=== PATIENT | female | born 1955 | race Caucasian/White ===

== ENCOUNTER 2019-11-02 09:31 | Emergency (ER) | payer MEDICARE, BC ==
[~2019-11-02] VITALS: Ht 165.1 cm; Wt 100.0 kg
[2019-11-02 11:00] LABS: BASOPHILS % (AUTO) 0.2 % (0-1); EOSINOPHILS % (AUTO) 0 % (0-6); HEMATOCRIT 44.8 % (35.0-45.0); HEMOGLOBIN 15.1 g/dl (12.0-16.0); LYMPHOCYTES # (AUTO) 1.2 X10'3 (1.1-4.8); LYMPHOCYTES % (AUTO) 10.4 % (21-51); MEAN CORPUSCULAR HEMOGLOBIN 30.2 PG (27.0-31.0); MEAN CORPUSCULAR HGB CONC 33.6 g/dL (33.0-36.5); MEAN CORPUSCULAR VOLUME 89.9 FL (78-98); MEAN PLATELET VOLUME 8.8 FL (7.4-10.4); MONOCYTES # (AUTO) 0.5 X10'3 (0-0.9); MONOCYTES % (AUTO) 4.1 % (2-12); NEUTROPHILS # (AUTO) 9.6 X10'3 (1.8-7.7); NEUTROPHILS % (AUTO) 85.3 % (42-75); PLATELET COUNT 163 X10'3 (140-440); RED BLOOD COUNT 4.99 X10'6 (4.20-5.60); RED CELL DISTRIBUTION WIDTH 13.1 % (11.5-14.5); WHITE BLOOD COUNT 11.3 X10'3 (4.5-11.0)
[2019-11-02 11:13] LABS: ALANINE AMINOTRANSFERASE 57 U/L (12-78); ALBUMIN 3.5 G/DL (3.4-5.0); ALKALINE PHOSPHATASE 151 IU/L (46-116); ANION GAP 10 (8-16); ASPARTATE AMINO TRANSFERASE 40 U/L (10-37); BILIRUBIN,TOTAL 0.2 MG/DL (0.1-1.0); BLOOD UREA NITROGEN 12 MG/DL (7-18); BUN/CREATININE RATIO 17.4 (6.6-38.0); CALCIUM 8.8 MG/DL (8.5-10.1); CHLORIDE 103 MMOL/L (99-107); CREATININE 0.69 MG/DL (0.40-0.90); GLUCOSE 134 MG/DL (70-104); POTASSIUM 3.4 MMOL/L (3.5-5.1); SODIUM 139 MMOL/L (135-145); TOTAL CARBON DIOXIDE 25.9 MMOL/L (24-32); TOTAL PROTEIN 7.1 G/DL (6.4-8.2); eGFR 85 ML/MIN
[2019-11-02] MEDS ORDERED: acetaminophen 325mg tablet PO ONE (11:30)
[2019-11-02] MEDS ORDERED: ibuprofen tablet 400 MG TABLET PO ONE (11:30)
[2019-11-02] MEDS ORDERED: ibuprofen 200mg tablet PO ONE (11:35)
--- NOTE | 2019-11-02 11:39 | NUR ---
Lab called with an Influenza A+ result for pt. SU Boateng made aware.
[2019-11-02] MEDS ORDERED: TAM75C PO (11:46)
[2019-11-02 11:56] VITALS: BP 142/82
== END 2019-11-02 11:59 | disposition home or self-care (01) ==
LOC: ER 09:32
DX: J10.1 Influenza due to other identified influenza virus with other respiratory manifestations (principal); G89.29 Other chronic pain; E78.00 Pure hypercholesterolemia, unspecified
CPT/HCPCS: 36415; 71046; 80053; 85025; 87502; 87503; 93005; 99285

== ENCOUNTER 2024-07-24 09:16 | Inpatient (IN) | payer MEDICARE, BC ==
[2024-07-24] VITALS (17 sets, daily range): BP systolic 90–184; BP diastolic 40–89; PULSE 70–91; RESP 9–26; O2SAT 83–99
[~2024-07-24] VITALS: Ht 162.6 cm; Wt 121.6 kg
[~2024-07-24 09:16] MED LIST: tenecteplase 50mg kit IV ONE
[2024-07-24] MEDS ORDERED: iohexol 350MG/ML 100ml bottle IV ONE (09:35)
[2024-07-24 09:54] LABS: BASOPHILS % (AUTO) 0.4 % (0-1); EOSINOPHILS # (AUTO) 0.2 X10'3 (0-0.9); EOSINOPHILS % (AUTO) 2.2 % (0-6); HEMATOCRIT 44.6 % (35.0-45.0); LYMPHOCYTES % (AUTO) 42.3 % (21-51); MEAN CORPUSCULAR HEMOGLOBIN 30.4 PG (27.0-31.0); MEAN CORPUSCULAR HGB CONC 33.7 g/dL (33.0-36.5); MEAN CORPUSCULAR VOLUME 90.4 FL (78-98); MEAN PLATELET VOLUME 7.1 FL (7.4-10.4); MONOCYTES # (AUTO) 0.4 X10'3 (0-0.9); MONOCYTES % (AUTO) 5.1 % (2-12); NEUTROPHILS # (AUTO) 3.5 X10'3 (1.8-7.7); PLATELET COUNT 271 X10'3 (140-440); RED BLOOD COUNT 4.93 X10'6 (4.20-5.60); RED CELL DISTRIBUTION WIDTH 13.5 % (11.5-14.5)
[2024-07-24 10:22] LABS: ALBUMIN 3.7 G/DL (3.4-5.0); ANION GAP 8 (8-16); BILIRUBIN,TOTAL 0.4 MG/DL (0.1-1.0); BLOOD UREA NITROGEN 14 MG/DL (7-18); BUN/CREATININE RATIO 21.9 (10.0-20.0); CHLORIDE 104 MMOL/L (99-107); CREATININE 0.64 MG/DL (0.40-0.90); GLUCOSE 105 MG/DL (70-104); POTASSIUM 3.8 MMOL/L (3.5-5.1); SODIUM 141 MMOL/L (135-145); TOTAL CARBON DIOXIDE 28.6 MMOL/L (24-32); TOTAL PROTEIN 7.4 G/DL (6.4-8.2); eCRCL 72 ML/MIN; eGFR > 90 ML/MIN
[2024-07-24 10:23] LABS: ALANINE AMINOTRANSFERASE 44 U/L (12-78); ALKALINE PHOSPHATASE 120 IU/L (46-116); ASPARTATE AMINO TRANSFERASE 30 U/L (10-37)
[2024-07-24 10:24] LABS: APTT 27 SECONDS (22-32); INR 0.9 INR; PROTHROMBIN TIME 9.8 SECONDS (9.0-12.0)
[2024-07-24] MEDS: tenecteplase 50mg kit IV ONE (10:25)
[2024-07-24 10:27] LABS: MAGNESIUM 2.2 MG/DL (1.5-2.4)
[2024-07-24] MEDS: ondansetron/PF 4mg/2ml inj IV ONE (10:38)
[2024-07-24] MEDS ORDERED: ROSU20TA98 PO (10:59)
[2024-07-24] MEDS ORDERED: GABA-1405 PO (10:59)
[2024-07-24] MEDS ORDERED: SERT-434 PO (10:59)
[2024-07-24] MEDS ORDERED: HYDR-3968 PO (10:59)
[2024-07-24] MEDS: metoprolol tartrate 1mg/ml inj IV ONE (11:06)
[2024-07-24] MEDS: proCHLORperazine 10 MG/2 ml inj IV PRN (11:10)
[2024-07-24] MEDS: HYDROmorphone inj. 0.5 MG/0.5 ML DISP.SYRIN IV ONE (11:13)
[2024-07-24] MEDS: labetalol 20mg/4ml (5mg/ml) syringe IV PRN (11:42)
[2024-07-24] MEDS: niCARDipine-NS 40mg/200ml IVPB 200 ML IV SCH (12:25)
[2024-07-24] MEDS ORDERED: acetaminophen 325mg tablet PO PRN ×2 (12:45)
[2024-07-24] MEDS ORDERED: ondansetron/PF 4mg/2ml inj IV PRN (12:45)
[2024-07-24] MEDS ORDERED: magnesium hydroxide 30ml (MOM) UD suspension PO PRN (12:45)
[2024-07-24] MEDS ORDERED: morphine 2 MG/ML inj. syringe IV PRN (12:45)
[2024-07-24 13:02] LABS: URINE AMPHETAMINE SCREEN NEGATIVE (Neg); URINE BARBITUATE SCREEN NEGATIVE (Neg); URINE BENZODIAZEPINES SCREEN NEGATIVE (Neg); URINE CANNABINOID SCREEN NEGATIVE (Neg); URINE COCAINE SCREEN NEGATIVE (Neg); URINE METHADONE SCREEN NEGATIVE (Neg); URINE OPIATE SCREEN POSITIVE (Neg); URINE PHENCYCLIDINE SCREEN NEGATIVE (Neg)
[2024-07-24] MEDS: HYDROcodone/acetaminophen 10/325mg tab PO PRN (16:53)
[2024-07-24] MEDS: ROSUVASTATIN CALCIUM 5 MG TABLET PO SCH (20:21)
[2024-07-25] VITALS (17 sets, daily range): BP systolic 134–170; BP diastolic 50–85; PULSE 68–89; RESP 10–23; TEMP 98–98.7; O2SAT 89–99
[2024-07-25 03:09] LABS: BASOPHILS % (AUTO) 0.4 % (0-1); EOSINOPHILS % (AUTO) 0.4 % (0-6); HEMATOCRIT 39.6 % (35.0-45.0); HEMOGLOBIN 13.3 g/dl (12.0-16.0); LYMPHOCYTES # (AUTO) 2.7 X10'3 (1.1-4.8); LYMPHOCYTES % (AUTO) 32.2 % (21-51); MEAN CORPUSCULAR HEMOGLOBIN 30.1 PG (27.0-31.0); MEAN CORPUSCULAR HGB CONC 33.7 g/dL (33.0-36.5); MEAN CORPUSCULAR VOLUME 89.5 FL (78-98); MEAN PLATELET VOLUME 7.2 FL (7.4-10.4); MONOCYTES # (AUTO) 0.5 X10'3 (0-0.9); MONOCYTES % (AUTO) 6.5 % (2-12); NEUTROPHILS % (AUTO) 60.5 % (42-75); PLATELET COUNT 233 X10'3 (140-440); RED BLOOD COUNT 4.43 X10'6 (4.20-5.60); RED CELL DISTRIBUTION WIDTH 13.3 % (11.5-14.5); WHITE BLOOD COUNT 8.2 X10'3 (4.5-11.0)
[2024-07-25 03:23] LABS: APTT 24 SECONDS (22-32); PROTHROMBIN TIME 10.2 SECONDS (9.0-12.0)
[2024-07-25 03:26] LABS: HEMOGLOBIN A1C 5.7 % (4.5-6.2)
[2024-07-25 03:28] LABS: ALANINE AMINOTRANSFERASE 33 U/L (12-78); ALBUMIN 3.4 G/DL (3.4-5.0); ALBUMIN/GLOBULIN RATIO 1.1 (1.1-1.5); ALKALINE PHOSPHATASE 92 IU/L (46-116); ANION GAP 7 (8-16); ASPARTATE AMINO TRANSFERASE 20 U/L (10-37); BILIRUBIN,TOTAL 0.4 MG/DL (0.1-1.0); BLOOD UREA NITROGEN 11 MG/DL (7-18); BUN/CREATININE RATIO 17.2 (10.0-20.0); CALCIUM 8.7 MG/DL (8.5-10.1); CHLORIDE 105 MMOL/L (99-107); CHOLESTEROL 177 MG/DL (0-200); CREATININE 0.64 MG/DL (0.40-0.90); GLUCOSE 110 MG/DL (70-104); HDL CHOLESTEROL 88 MG/DL (35-60); LDL CHOLESTEROL 71 MG/DL (50-100); MAGNESIUM 2.2 MG/DL (1.5-2.4); PHOSPHORUS 4.2 MG/DL (2.3-4.5); POTASSIUM 3.7 MMOL/L (3.5-5.1); SODIUM 142 MMOL/L (135-145); TOTAL CARBON DIOXIDE 30.2 MMOL/L (24-32); TOTAL PROTEIN 6.6 G/DL (6.4-8.2); TRIGLYCERIDES 97 MG/DL (20-135); eCRCL 72 ML/MIN; eGFR > 90 ML/MIN
[2024-07-25] MEDS: pantoprazole 40mg Tablet.DR PO SCH (08:19)
[2024-07-25] MEDS: sertraline 50mg tablet PO SCH (08:19)
[2024-07-25] MEDS: gabapentin 300mg capsule PO SCH (08:20)
[2024-07-25] MEDS: morphine 4 MG/ML inj SYRINge IV PRN (09:21)
[2024-07-25] MEDS: LORazepam 2 mg/ml vial IV ONE (10:08)
[2024-07-25] MEDS: losartan 50mg tablet PO SCH (16:20)
[2024-07-25] MEDS: HYDROchlorothiazide 25mg tablet PO SCH (16:20)
[2024-07-26 01:48] VITALS: BP 138/69; PULSE 84; RESP 19; TEMP 97.9; O2SAT 96
[2024-07-26 05:31] VITALS: BP 120/64; PULSE 123; RESP 22
[2024-07-26 06:00] VITALS: BP 141/72; PULSE 78; RESP 13; TEMP 97.4; O2SAT 95
[2024-07-26 06:48] LABS: APTT 27 SECONDS (22-32); PROTHROMBIN TIME 10.3 SECONDS (9.0-12.0)
[2024-07-26 06:51] LABS: BASOPHILS % (AUTO) 0.3 % (0-1); EOSINOPHILS # (AUTO) 0.1 X10'3 (0-0.9); EOSINOPHILS % (AUTO) 1.3 % (0-6); HEMATOCRIT 41.3 % (35.0-45.0); HEMOGLOBIN 13.6 g/dl (12.0-16.0); LYMPHOCYTES # (AUTO) 2.3 X10'3 (1.1-4.8); LYMPHOCYTES % (AUTO) 23.8 % (21-51); MEAN CORPUSCULAR HEMOGLOBIN 29.9 PG (27.0-31.0); MEAN CORPUSCULAR VOLUME 90.6 FL (78-98); MEAN PLATELET VOLUME 7.3 FL (7.4-10.4); MONOCYTES # (AUTO) 0.6 X10'3 (0-0.9); NEUTROPHILS # (AUTO) 6.7 X10'3 (1.8-7.7); NEUTROPHILS % (AUTO) 68.6 % (42-75); PLATELET COUNT 237 X10'3 (140-440); RED BLOOD COUNT 4.56 X10'6 (4.20-5.60); RED CELL DISTRIBUTION WIDTH 13.4 % (11.5-14.5); WHITE BLOOD COUNT 9.8 X10'3 (4.5-11.0)
[2024-07-26 06:56] LABS: ALANINE AMINOTRANSFERASE 28 U/L (12-78); ALBUMIN 3.5 G/DL (3.4-5.0); ALBUMIN/GLOBULIN RATIO 1.1 (1.1-1.5); ALKALINE PHOSPHATASE 88 IU/L (46-116); ANION GAP 6 (8-16); ASPARTATE AMINO TRANSFERASE 26 U/L (10-37); BILIRUBIN,TOTAL 0.4 MG/DL (0.1-1.0); BLOOD UREA NITROGEN 19 MG/DL (7-18); BUN/CREATININE RATIO 27.5 (10.0-20.0); CALCIUM 8.6 MG/DL (8.5-10.1); CHLORIDE 102 MMOL/L (99-107); CREATININE 0.69 MG/DL (0.40-0.90); GLUCOSE 116 MG/DL (70-104); MAGNESIUM 2.2 MG/DL (1.5-2.4); PHOSPHORUS 3.9 MG/DL (2.3-4.5); POTASSIUM 3.9 MMOL/L (3.5-5.1); SODIUM 138 MMOL/L (135-145); TOTAL CARBON DIOXIDE 29.9 MMOL/L (24-32); TOTAL PROTEIN 6.8 G/DL (6.4-8.2); eCRCL 66 ML/MIN; eGFR 84 ML/MIN
[2024-07-26] MEDS: aspirin 81mg, enteric-coated 1 TAB TABLET.DR PO SCH (08:01)
[2024-07-26] MEDS: clopidogrel 75mg tablet PO SCH (08:03)
[2024-07-26 10:00] VITALS: BP 144/69; PULSE 86; RESP 15; TEMP 97.7; O2SAT 94
[2024-07-26] MEDS ORDERED: LOSA50TA64 PO (10:09)
[2024-07-26] MEDS ORDERED: ASPI-1071 PO (10:09)
[2024-07-26] MEDS ORDERED: CLOP75TA34 PO (10:09)
[2024-07-26 10:42] VITALS: RESP 16
== END 2024-07-26 11:57 | disposition home or self-care (01) | DRG 62 ==
LOC: ER 09:17 → ED HOLD 12:48 → CICU 2S 13:41 → ORTHO 4S 07-25 13:20
PROVIDERS: ADMIT Internal Medicine Critical Care Medicine; ATTEND Internal Medicine Critical Care Medicine
PROC: 3E03317 Introduction of Other Thrombolytic into Peripheral Vein, Percutaneous Approach (ICD-10-PCS; principal; 2024-07-24)
PROC: B3251ZZ Computerized Tomography (CT Scan) of Bilateral Common Carotid Arteries using Low Osmolar Contrast (ICD-10-PCS; 2024-07-24)
PROC: B32G1ZZ Computerized Tomography (CT Scan) of Bilateral Vertebral Arteries using Low Osmolar Contrast (ICD-10-PCS; 2024-07-24)
PROC: B32R1ZZ Computerized Tomography (CT Scan) of Intracranial Arteries using Low Osmolar Contrast (ICD-10-PCS; 2024-07-24)
PROC: B3281ZZ Computerized Tomography (CT Scan) of Bilateral Internal Carotid Arteries using Low Osmolar Contrast (ICD-10-PCS; 2024-07-24)
DX: I63.9 Cerebral infarction, unspecified (principal); Z68.42 Body mass index [BMI] 45.0-49.9, adult; G89.29 Other chronic pain; I10 Essential (primary) hypertension; Z20.822 Contact with and (suspected) exposure to COVID-19; E66.01 Morbid (severe) obesity due to excess calories; Z96.652 Presence of left artificial knee joint; E78.49 Other hyperlipidemia; Z96.643 Presence of artificial hip joint, bilateral; F32.A Depression, unspecified; M54.89 Other dorsalgia; Z90.49 Acquired absence of other specified parts of digestive tract
CPT/HCPCS: 36415; 70450; 70496; 70498; 70551; 71045; 80053; 80061; 80305; 82948; 83036; 83735; 84100; 84484; 85025; 85610; 85730; 87081; 87502; 87503; 87811; 92508; 92616; 93005; 93306; 97116; 97161; 97530; 99291; A4314; A4615; A4620; G0378; J0780; J1171; J2060; J2270; J2405; J3101; J3490; J7030; Q9967

== ENCOUNTER 2025-07-21 08:16 | Emergency (ER) | payer BC, MEDICARE ==
[~2025-07-21] VITALS: Ht 162.6 cm; Wt 84.1 kg
[~2025-07-21 08:16] MED LIST changes: +ASPI-1071 PO; +CLOP75TA34 PO; +GABA-1405 PO; +HYDR-3968 PO; +LOSA50TA64 PO; +ROSU20TA98 PO; +SERT-434 PO; -tenecteplase 50mg kit IV ONE
[2025-07-21 08:30] VITALS: TEMP 97.5
--- NOTE | 2025-07-21 08:31 | ELECTROCARDIOGRAPH REPORT ---
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 SERENA Wilder Measurements Intervals [place] Rate: 103 P: 50 VT: 148 QRS: 36 QRSD: 84 T: 32 QT: 333 QTc: 436 Interpretive Statements Sinus tachycardia Ventricular premature complex Aberrant complex Electronically Signed On 07-23-2025 18:05:[address] SERENA Wilder Please click the below link to view image of tracing.
--- NOTE | 2025-07-21 08:33 | Physician Documentation ---
Addendum CHIEF COMPLAINT/HPI: The patient is a 69-year-old female with a history of TIA one year ago and hy perlipidemia who woke up this morning (7:00 a.m.) with some of the symptoms similar to her TIA one year ago. She currently takes aspirin and medication for hyperlipidemia, no other blood thinners. She reports that she has trouble articulating written words and this is similar to her symptoms a year ago. She reports that her symptoms are less severe than they were a year ago but she is concerned that they might worsen. REVIEW OF SYSTEMS: Constitutional: Denies chills, fatigue, fever, weight gain or weight loss. HEENT: Denies hearing loss, sinus pressure or visual changes. Respiratory: Denies cough, shortness of breath or wheezing. Cardiovascular: Denies chest pain, pain while walking (claudication), edema or palpitations. Gastrointestinal: Denies abdominal pain, blood in stool, constipation, diarrhea, heartburn, loss of appetite, nausea or vomiting. Genitourinary: Denies painful urination (dysuria), excessive amount of urine (polyuria) or urinary frequency. Metabolic/Endocrine: Denies cold intolerance, heat intolerance, excessive thirst (polydipsia) or excessive hunger (polyphagia). Neurological: Denies dizziness, extremity numbness, extremity weakness, seizures or tremors. She currently has a headache. Psychiatric: Denies anxiety or depression. Integumentary: Denies breast discharge, breast lump, hives, mole change(s), rash or skin lesion. Musculoskeletal: Denies back pain, joint pain, joint swelling or neck pain. Hematologic: Denies easily bleeding, easily bruises, lymphedema or issues with blood clots. Immunologic: Denies food allergies or seasonal allergies. PHYSICAL EXAMINATION: Vitals and nursing note reviewed. Constitutional: General: Patient is awake, alert, oriented x 4 in no acute distress and well appearing. Speech is clear and lucid. Appearance: Normal appearance. Patient is not ill-appearing, toxic-appearing or diaphoretic. HENT: Head: Normocephalic and atraumatic. Mouth: Mucous membranes are moist. Pharynx: Oropharynx is clear. Eyes: General: No scleral icterus. Extraocular Movements: Extraocular movements intact. Pupils: Pupils are equal, round, and reactive to light. Neck: Supple, no Kernig or Brudzinski sign. Cardiovascular: Rate and Rhythm: Normal rate and regular rhythm. Heart sounds: No murmur heard. Pulmonary: Effort: No respiratory distress. Breath sounds: No wheezing, rhonchi or rales. Abdominal: General: There is no distension. Palpations: There is no fluid wave, hepatomegaly or mass. Tenderness: There is no abdominal tenderness. There is no guarding. Musculoskeletal: General: No swelling or deformity. Skin: Coloration: Skin is not jaundiced. Findings: No erythema or rash. Neurological examination: GCS: E-4, V-5, M-6 Motor strength: [motor strength] Sensory: [sensory] cleaning attendant: II - XII intact Equilibratory intact MEDICAL DECISION MAKING: Our tele stroke clinical education consultant told me that he evaluated this patient a year ago. At that time, her MRI was negative. His feeling is that this is not a TIA or stroke when she should be hydrated and treated for the headache. I have given her a L of saline and Toradol. 11:35 a.m.: The patient feels better and has only a very mild headache. She would like to go home and this is in accordance with the feeling of our tele stroke doctor, who recommended discharge. I did offer her admission but she decided to go home and return for worsening symptoms or new/unusual symptoms. I am discharging her with strict return precautions. Departure Disposition: 01 HOME / SELF CARE / HOMELESS Impression: Primary Impression: Neurological symptoms Condition: Stable Additional Instructions: You have been evaluated for neurological symptoms. The tele stroke neurologist feels that you are not having a TIA or stroke. Do not hesitate to return if you develop worsening symptoms or new/unusual symptoms. JOSE DAVID LYN MD Jul 21, 2025 08:33
[2025-07-21 08:52] LABS: MEAN PLATELET VOLUME 8.1 FL (7.4-10.4); RED CELL DISTRIBUTION WIDTH 14.5 % (11.5-14.5)
[2025-07-21 09:01] LABS: CREATININE 0.65 MG/DL (0.40-0.90); TOTAL CARBON DIOXIDE 30.9 MMOL/L (24-32); eCRCL 70 ML/MIN; eGFR 90 ML/MIN
--- NOTE | 2025-07-21 09:01 | RADIOLOGY REPORT ---
CLINICAL INFORMATION: TIA, CVA. TECHNIQUE: Axial imaging was obtained through the brain without contrast. Coronal and sagittal reformatted images were obtained, reviewed, and stored. Images were reviewed in brain and bone windows. All CT scans at this medical facility are performed using dose modulation techniques as appropriate to a performed exam including the following: Automated exposure control was utilized; adjustment of the MA and/or KV according to patient size; and use of iterative reconstruction technique. CTDIvol = 62.75 mGy DLP = 1180.98 mGy-cm COMPARISON: MR MRI HEAD on DOS: 07/25/24, CT CT STROKE ALERT on DOS: 07/24/24 FINDINGS: There is no acute intracranial hemorrhage. No mass effect or midline shift. Scattered areas of hypoattenuation are seen in the periventricular and subcortical white matter, which are nonspecific but most likely sequelae of small vessel ischemic disease. Small chronic lacunar infarct in the left basal ganglia. The ventricles and sulci are within normal limits in size for age. Basal cisterns are patent. The calvarium is unremarkable. Paranasal sinuses and mastoid air cells are clear. IMPRESSION: 1. No CT evidence of acute intracranial abnormality. 2. Nonacute findings as described above. Critical findings Critical Result: Stroke Alert Findings discussed with Dr. 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 ..
[2025-07-21 09:05] LABS: APTT 28 SECONDS (22-32); INR 1.0 INR
--- NOTE | 2025-07-21 09:07 | RADIOLOGY REPORT ---
CLINICAL INFORMATION: 69 years old, Female; Stroke Alert. TECHNIQUE: Single AP portable chest radiograph was obtained. COMPARISON: DI CHEST,SINGLE VIEW on DOS: 07/24/24 FINDINGS: Lungs: Subtle increased opacification of the right upper lobe. Left lung is clear. Cardiac: Heart size is within normal limits. Pulmonary vasculature: Unremarkable. Mediastinum/wendi: Unremarkable. Bones: No acute osseous abnormality identified. Other: No other significant findings. IMPRESSION: Subtle increased opacification of the right upper lobe is nonspecific, may be infectious or inflammatory in nature in the appropriate clinical setting, or due to overlying soft tissue density. Left lung is clear.
--- NOTE | 2025-07-21 09:09 | [facility] CONSULT REPORT ---
[facility] Procedure Note [facility] Procedure Note Consult [facility] Note # Demographics Consult Type: Acute Stroke Level 1 (0-4.5 hrs) Patient Location: Emergency Room First Name: DOMINIQUE Last Name: ALEJANDRINA Date of : 1955 Age: 69 Gender: Female Facility: [facility] Time of Initial Page (): 07/21/2025 08:50 First Contact with Site (): 07/21/2025 08:51 # HPI History: 69 y/o F w/prior TIA 1 year ago who p/w reading difficulties at 0800. Has not been eating well. Has headache today, not as bad as last year with her event. I saw her 1 year ago for the same thing and gave her TNK but complex migraine was on my differential. Her MRI was negative # Scores Time of exam and NIHSS (): 07/21/2025 08:57 Level of Consciousness 1a: [0] = Alert; keenly responsive LOC Questions 1b: [0] = Answers both questions correctly LOC Commands 1c: [0] = Performs both tasks correctly Best Gaze 2: [0] = Normal Visual 3: [0] = No visual loss Facial Palsy 4: [0] = Normal symmetrical movements Motor Arm Left 5a: [0] = No drift Motor Arm Right 5b: [0] = No drift Motor Leg Left 6a: [0] = No drift Motor Leg Right 6b: [0] = No drift Limb Ataxia 7: [0] = Absent Sensory 8: [0] = Normal Best Language 9: [0] = No aphasia Dysarthria 10: [0] = Normal Extinction and Inattention 11: [0] = No abnormality NIHSS Total: 0 # PMH-FH- Past Medical History: - TIA Medications: - aspirin # Data Time Head CT personally read by me (): 07/21/2025 09:[address]: - no bleed - preliminarily reviewed by me, please refer to radiology read for official reading Time CTA personally reviewed by me (): 07/21/2025 09:05 CTA Head: - no large vessel occlusion - preliminarily reviewed by me, please refer to radiology read for official reading CTA Neck: - patent vessels - preliminarily reviewed by me, please refer to radiology read for official reading # Assessment Impression: - Other Favor complex migraine or stress or HTN urgency. This is a stereotyped presentation similar to last year for which TNK was given and MRI was negative. # Plan Thrombolytic/Intervention: NOT IV Thrombolysis or IA Intervention candidate Thrombolytic Exclusion (< 3 hour window): - NIHSS = 0 Intraarterial Exclusion: - no large vessel occlusion (LVO) Target Blood Pressure: - SBP < 160 - DBP < 105 Medication: - migraine cocktail: Toradol 30 mg IV + Benadryl 25 mg IV + antiemetic IV - aspirin 81 mg PO daily Other: - If patient has any neurological deterioration please call me back immediately - I have discussed my recommendations with the referring provider - If CTA negative and symptoms resolved may dispo; otherwise would admit for MRI and symptom control # Logistics Attestation of consult completion: The patient is located at: [facility]. Facility staff participated in the visit. I performed this telemedicine visit from my offsite office utilizing interactive 2 way audio and visual telecommunication technology at the request of the onsite emergency room provider. Consent: Verbal consent was obtained from the patient and/or family for this encounter. Total time spent in telemedicine encounter: I spent 15 minutes reviewing clinical data and/or imaging, obtaining history, examining the patient, communicating with the onsite care team, and in preparation of this report. # Demographics First Name: DOMINIQUE Last Name: OXFORD Facility: [facility] Neuro Consult Order placed for: Yes ANGIE NEGRON MD Jul 21, 2025 09:09
--- NOTE | 2025-07-21 09:12 | RADIOLOGY REPORT ---
CT CTA NECK/HEAD INDICATION: TIA/CVA EXAM DATE: 07/21/2025 08:35 AM COMPARISON: CT CT STROKE ALERT on DOS: 07/21/25, MR MRI HEAD on DOS: 07/25/24, CT CTA NECK/HEAD on DOS: 07/24/24 RADIATION DOSE: CTDIvol: 12 mGy, DLP: 427 mGy*cm PROCEDURE: CT angiogram images were obtained of the head and neck. Coronal and sagittal reformatted images were created as well as 3D and/or MIP reconstructions. All CT scans at this medical facility are performed using dose modulation techniques as appropriate to a performed exam including the following: Automated exposure control was utilized; adjustment of the MA and/or KV according to patient size; and use of iterative reconstruction technique. FINDINGS: Head: On the CT angiographic images, the internal carotid arteries are normal in caliber from the skull base to their bifurcations. The anterior and middle cerebral arteries and their branches appear normal. The anterior communicating artery appears normal. The left posterior communicating artery is normal. The right posterior communicating artery is not well seen and may be absent or hypoplastic. The vertebral arteries are codominant. The vertebral, basilar, superior cerebellar, and posterior cerebral arteries are normal in caliber. No aneurysm, arteriovenous malformation, or stenosis is visible. Neck: The common carotid, internal carotid, external carotid, and vertebral arteries are normal in caliber. The vertebral arteries are codominant. The visualized intracranial arteries are normal. There is no evidence of contrast extravasation, filling defects, stenosis, or dissection. The pharynx and airway are normal. The thyroid, submandibular, and parotid glands appear normal. No lymphadenopathy is seen. The visualized intracranial structures are unremarkable. IMPRESSION: No acute abnormal CT angiographic findings of the head and neck without large vessel occlusion or dissection.
[2025-07-21] MEDS: normal saline 1000ml 1,000 ML IV ONE (09:58)
[2025-07-21] MEDS: ketorolac trometh 15mg/ml vial 15 MG/ML ML IV ONE (09:58)
[2025-07-21 11:33] LABS: LEUKOCYTE ESTERASE ,URINE NEGATIVE (Neg); NITRITES, URINE NEGATIVE (Neg); OCCULT BLOOD,URINE NEGATIVE (Neg)
[2025-07-21 11:43] LABS: UA COLLECTION TYPE CLN CATCH MIDSTREAM
[2025-07-21 11:58] LABS: URINE AMPHETAMINE SCREEN NEGATIVE (Neg); URINE BARBITUATE SCREEN NEGATIVE (Neg); URINE BENZODIAZEPINES SCREEN NEGATIVE (Neg); URINE CANNABINOID SCREEN NEGATIVE (Neg); URINE COCAINE SCREEN NEGATIVE (Neg); URINE METHADONE SCREEN NEGATIVE (Neg); URINE OPIATE SCREEN POSITIVE (Neg); URINE PHENCYCLIDINE SCREEN NEGATIVE (Neg)
[2025-07-21 12:28] VITALS: BP 123/59; PULSE 77; RESP 18; O2SAT 97
== END 2025-07-21 12:32 | disposition home or self-care (01) ==
LOC: ER 08:17
DX: R29.818 Other symptoms and signs involving the nervous system (principal); E78.5 Hyperlipidemia, unspecified; Z79.82 Long term (current) use of aspirin; Z86.73 Personal history of transient ischemic attack (TIA), and cerebral infarction without residual deficits; Z79.899 Other long term (current) drug therapy; Z79.01 Long term (current) use of anticoagulants
CPT/HCPCS: 36415; 70450; 70496; 70498; 71045; 80048; 80305; 81003; 82948; 85025; 85610; 85730; 86885; 86900; 86901; 93005; 96361; 96374; 99285; J1885; J7030; Q9967